=== PATIENT | female | born 1950 | race Caucasian/White ===

== ENCOUNTER 2019-06-21 07:00 | Day surgery (SDC) | payer MEDICARE ==
[~2019-06-21] VITALS: Ht 165.1 cm; Wt 68.0 kg
--- NOTE | ~2019-06-21 | OR ---
[facility] [address], [place] [address] Draft DATE OF OPERATION: 06/21/2019 SURGEON: Katie Lacy MD PREOPERATIVE DIAGNOSIS: Screening. POSTOPERATIVE DIAGNOSIS: Minimal internal hemorrhoids. PROCEDURE: Colonoscopy without biopsy. ESTIMATED BLOOD LOSS: None. INDICATIONS: Heaven underwent an unremarkable colonoscopy in 2008 at the age of 58 for guaiac-positive stool. She returns now for routine followup screening. She has no lower GI complaints. There is no family history of colon cancer or polyps. She is very healthy and at her ideal body weight. She says she is doing great. In the office, I gave Heaven a pamphlet on colonoscopy. We looked at that together along with the risks including, but not limited to gas bloating, crampy abdominal pain, bleeding, perforation requiring surgery, and missed diagnosis. She also understands the need for IV conscious sedation. She and her expressed understanding and wished to proceed. PROCEDURE NOTE: Heaven was taken into our endoscopy suite and placed in the left lateral decubitus position. She was given a total of 6 mg of Versed and 150 mcg of fentanyl to cover the case. A digital rectal exam was performed and this was unremarkable. The adult colonoscope was introduced and advanced under direct visualization of the camera. We made it quite readily up to the hepatic flexure. Her hepatic flexure was somewhat redundant and angulated. It took some extra sedation and abdominal compression in order to get around the hepatic flexure and then down into the cecum itself. Her prep was average. We could see the appendiceal orifice and the ileocecal valve. We slowly withdrew the camera. We took pictures throughout for photodocumentation. We saw no pathology throughout the entire colon or rectum. Upon retroflexion of the scope, she has very minimal internal hemorrhoid tissue. After this, the gas was suctioned out and the colonoscope removed. Heaven tolerated the procedure quite well. PATIENT NAME: HEAVEN HOUGH OPERATIVE REPORT DATE OF : 48 REPORT #: [id number] PHYSICIAN: KATIE LACY MD PCP: NICOLE HALL PAC REPORT IS CONFIDENTIAL AND NOT TO BE RELEASED WITHOUT AUTHORIZATION [facility] [address] [place] [id number] Draft RECOMMENDATIONS: Heaven can return in 10 years so long as her health holds up. Katie Lacy MD ALB/MODL /[id number] cc: MD Nicole Pickens PA Andrew L Bower, MD Copies: KENJI BADILLO MD, ANDREW L MD ~ PATIENT NAME: HEAVEN HOUGH OPERATIVE REPORT DATE OF : 48 REPORT #: [id number] PHYSICIAN: KATIE LACY MD PCP: NICOLE HALL PAC REPORT IS CONFIDENTIAL AND NOT TO BE RELEASED WITHOUT AUTHORIZATION
[~2019-06-21 07:00] MED LIST: GLUCOSAMINE &1 EAC1 PO; VITAMIN D325 MC2 PO
--- NOTE | 2019-06-21 08:32 | NUR ---
06/21/19 0832 Susannah Brown 0826- PT ARRIVES TO PACU AROUSABLE TO NOXIOUS STIMULI. INSTANTLY FALLS BACK TO SLEEP WHEN NOT BEING STIMULATED. RESP EVEN AND UNLABORED. OXYGEN SAT HIGH 90'S TO 100% ON 3L VIA NC.
== END 2019-06-21 09:35 | disposition home or self-care (01) ==
LOC: DS 07:00 → OPS 07:00 → DS 08:15 → OPS 08:15
PROVIDERS: Colon & Rectal Surgery
PROC: 0DJD8ZZ Inspection of Lower Intestinal Tract, Via Natural or Artificial Opening Endoscopic (ICD-10-PCS; principal; 2019-06-21 08:15)
DX: Z12.11 Encounter for screening for malignant neoplasm of colon (principal); K64.8 Other hemorrhoids; Z79.899 Other long term (current) drug therapy; Z88.8 Allergy status to other drugs, medicaments and biological substances
CPT/HCPCS: G0121; 99153; G0500; J2250; J3010; J7121